=== PATIENT | male | born 1945 | race Caucasian/White ===

== ENCOUNTER → 2019-02-07 | Outpatient (CLI) | payer MEDICARE, BC ==
[~2019-02-07] VITALS: Ht 180.3 cm; Wt 104.5 kg
[~2019-02-07] MED LIST: ASPIRIN 32325 MG/TAB PO; CARDI-OMEGA1000 MG PO; CHILDREN'S ASPI81 M1 PO; FLUTICASON0.05 MG/AC NS; LISINOPRIL5 MG PO; LOPRESSOR 225 MG/TAB PO; NITROSTAT0.4 MG SL; ZOCOR 20MG20 MG PO
[2019-02-07 15:50] VITALS: BP 155/83
== END ==
LOC: AMSURD 15:35
DX: R06.09 Other forms of dyspnea (principal)

== ENCOUNTER → 2020-06-01 | Outpatient (CLI) | payer MEDICARE, BC ==
[2019-02-07 15:50] VITALS: BP 155/83
== END ==
LOC: AMSURD 15:06
DX: I25.10 Atherosclerotic heart disease of native coronary artery without angina pectoris (principal)